=== PATIENT | male | born 1930 | race Caucasian/White ===

== ENCOUNTER → 2016-07-16 | Outpatient (CLI) | payer MEDICARE ==
[~2016-07-16] MED LIST: ASPI1TAB7 PO; CALC.25 PO; HYDR50TA15 PO; LASI20TA PO; LISI-363 PO; PROC90TA PO; ROSU1TAB4 PO; TERA10CA3 PO
== END ==
LOC: CLAB 11:05
PROVIDERS: ATTEND Psychiatry & Neurology Vascular Neurology
DX: G25.2 Other specified forms of tremor (principal)
CPT/HCPCS: 36415; 82140

== ENCOUNTER → 2016-08-06 | Day surgery (SDC) | payer MEDICARE ==
[~2016-08-06] MED LIST changes: +LACTATED RINGER'S 1000 ML INJ 1,000 ML ONE; +LIDOCAINE 1%/EPINEPHrine 1:100,000 SOLN 30 ML VIAL ONE; +LIDOCAINE HCL 1% PF 30 ML VIAL ONE; +ONDANSETRON HCL 4 MG/2 ML VIAL IV PUSH ONE; +PROPOFOL 200 MG/20 ML AMP IV ONE; +ceFAZolin 2 GM PREMIX 50 ML ONE
--- NOTE | 2016-08-09 13:01 | MP ---
cc: SNOW GILBERT M.D. DATE OF SURGERY: 08/06/2016. PREOPERATIVE DIAGNOSIS: Biopsy-proven squamous cell carcinoma, right ear, scapha skin. POSTOPERATIVE DIAGNOSIS Biopsy-proven squamous cell carcinoma, right ear, scapha skin. OPERATIVE PROCEDURE PERFORMED: Excision and frozen section right ear biopsy-proven squamous cell carcinoma and full-thickness skin graft from the right upper neck. SURGEON: Snow Gilbert M.D. ANESTHESIA: General. INDICATIONS FOR THE PROCEDURE: This is an 86-year-old white male with a lesion involving the midportion of his scapha towards the scaphoconchal junction. Biopsy showed a squamous cell carcinoma, invasive type. The patient was referred to me for further excision and reconstruction. The patient underwent explanation of the excision and frozen section process and a full-thickness skin graft from the nearby area. The patient was willing to go ahead with the surgery and understood that the graft can possibly fail and may need open wound care treatment or another skin graft in the future, also that the frozen section biopsy report while generally the same as the permanent in the long run may have a small chance of error and a future surgery may be needed if there is any leftover squamous cell carcinoma on the borders. DESCRIPTION OF THE PROCEDURE IN DETAIL: The patient was brought to the operating room and was in the supine position. Anesthesia was started. Prep and drape was done. IV antibiotic had been given. The time-out was called and completed. The area surrounding the biopsy scar was a margin of approximately 3 mm border and the area was injected with lidocaine 1% with epinephrine. The donor site was selected from behind the right earlobe and was also injected. The skin lesion was excised and suture marked superior and sent for frozen section. Hemostasis was completed. A slightly oversized graft was harvested from the donor site and it was set into the ear defect. The donor site was closed with 4-0 Vicryl internal sutures. The frozen section report issued indicated clear margins. The graft was stabilized with bolster sutures front and back and the patient was allowed to recover from anesthesia. Intraoperative blood loss less than couple of ccs. No complications. signed, not fully reviewed MD MARY Ravi/SHIRA /8:58 AM /12:55 PM KRISTAL
== END | disposition home or self-care (01) ==
LOC: ESDC 06:49
PROVIDERS: ATTEND Plastic Surgery
DX: C44.222 Squamous cell carcinoma of skin of right ear and external auricular canal (principal)
CPT/HCPCS: 00300; 11642; 15260; 88305; 88331; J0690; J2405; J3010; J7120